=== PATIENT | female | born 1995 | race Two or more races ===

== ENCOUNTER 2017-01-14 05:03 | Emergency (ER) | payer OTHER, MEDICAID ==
[2017-01-14 05:14] VITALS: BMI 24.7
[2017-01-14 05:18] VITALS: BP 109/94; PULSE 72; RESP 15; TEMP 97.8; O2SAT 99
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
== END 2017-01-14 05:53 | disposition home or self-care (01) ==
LOC: ED 05:03
DX: S29.012A Strain of muscle and tendon of back wall of thorax, initial encounter (principal); V49.9XXA Car occupant (driver) (passenger) injured in unspecified traffic accident, initial encounter